=== PATIENT | female | born 1955 | race Caucasian/White ===

== ENCOUNTER 2019-05-06 12:26 | Emergency (ER) | payer BC, OTHER ==
[2019-05-06 12:48] VITALS: BP 110/64
--- NOTE | 2019-05-06 12:49 | EDM.PDOC ---
ED HPI GENERAL MEDICAL PROBLEM - General Stated Complaint: FELL DOWN THE STAIRS Time Seen by Provider: 05/06/19 12:35 Source of Information: Reports: Patient History Limitations: Reports: No Limitations - History of Present Illness INITIAL COMMENTS - FREE TEXT/NARRATIVE: This 64 yo female patient reports to the ED with pain and bruising to her right buttocks and hip. The patient reports she fell down approximately 4 stairs due to tripping on a towel and landed on her buttocks. The patient has several contusions and abrasions on her right ankle and left forearm with no current bleeding. The patient denies any loss of consciousness before, during or after the fall. Onset: Today Duration: Minutes:, Constant Location: Reports: Lower Extremity, Right Quality: Reports: Ache, Dull Severity: Moderate Improves with: Reports: None Worsens with: Reports: None Context: Reports: Other Associated Symptoms: Reports: No Other Symptoms - Related Data Allergies Allergy/AdvReac Type Severity Reaction Status Date / Time azathioprine [From Imuran] Allergy developed Verified 05/06/19 12:34 Pancreatitis clindamycin Allergy Abdominal Verified 05/06/19 12:33 Pain infliximab [From Remicade] Allergy blood clots Verified 05/06/19 12:34 meperidine [From Demerol] Allergy Hallucinati Verified 05/06/19 12:33 ons Home Meds: Home Meds Adalimumab [Humira] 20 mg IM Q14D 05/06/19 [History] Rivaroxaban [Xarelto] 20 mg PO DAILY 05/06/19 [History] Past Medical History HEENT History: Reports: None Cardiovascular History: Reports: None Respiratory History: Reports: None Other Gastrointestinal History: Crohns Genitourinary History: Reports: None 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: Musculoskeletal History: Reports: Arthritis Neurological History: Reports: None Psychiatric History: Reports: None Endocrine/Metabolic History: Reports: None Hematologic History: Reports: None Immunologic History: Reports: None Oncologic (Cancer) History: Reports: None Dermatologic History: Reports: Other (See Below) Other Dermatologic History: recurring perianal abscess - Infectious Disease History Infectious Disease History: Reports: Chicken Pox, Measles, Shingles - Past Surgical History Female Surgical History: Reports: Breast Biopsy, Hysterectomy Oncologic Surgical History: Reports: Biopsy of Breast Social & Family History - Family History HEENT: Reports: Macular Degeneration GI: Reports: Diverticulosis Psychiatric: Reports: Depression Endocrine/Metabolic: Reports: Diabetes, type II Oncologic: Reports: Bladder - Caffeine Use Caffeine Use: Reports: Coffee Review of Systems - Review of Systems Review Of Systems: ROS reveals no pertinent complaints other than HPI. ED EXAM, GENERAL - Physical Exam Exam: See Below Exam Limited By: No Limitations General Appearance: Alert, WD/WN, Mild Distress Eye Exam: Bilateral Eye: EOMI, Normal Inspection, PERRL Ears: Normal External Exam, Normal Canal, Hearing Grossly Normal, Normal TMs Nose: Normal Inspection, No Blood Throat/Mouth: Normal Inspection, Normal Lips, Normal Teeth Head: Atraumatic, Normocephalic Neck: Full Range of Motion Respiratory/Chest: No Respiratory Distress, Lungs Clear Cardiovascular: Normal Peripheral Pulses, Regular Rate, Rhythm, No Edema, No Gallop, No JVD, No Murmur, No Rub GI/Abdominal: Normal Bowel Sounds, Soft, Non-Tender, No Organomegaly, No Distention, No Abnormal Bruit, No Mass (Female) Exam: Deferred Rectal (Female) Exam: Deferred Back Exam: Normal Inspection, Full Range of Motion, NT Extremities: Leg Pain (right buttocks has an area of contusion) Neurological: Alert, Oriented, CN II-XII Intact Psychiatric: Normal Affect, Normal Mood Skin Exam: Warm, Dry, Intact, Normal Color, No Rash Lymphatic: No Adenopathy Course - Vital Signs Last Recorded V/S: Last Vital Signs Temp 36.3 C 05/06/19 12:29 Pulse 88 05/06/19 12:29 Resp 18 05/06/19 12:29 BP 110/64 05/06/19 12:29 Pulse Ox 98 05/06/19 12:29 Departure - Departure Time of Disposition: 13:15 Disposition: Home, Self-Care 01 Condition: Fair Clinical Impression: Contusion of right hip Qualifiers: Encounter type: initial encounter Qualified Code(s): S70.01XA - Contusion of right hip, initial encounter - Discharge Information *PRESCRIPTION DRUG MONITORING PROGRAM REVIEWED*: Not Applicable *COPY OF PRESCRIPTION DRUG MONITORING REPORT IN PATIENT ALBERTO: Not Applicable Instructions: Contusion, [id number] Forms: ED Department Discharge Care Plan Goals: The patient was advised of the examination and x-ray results during the visit. The patient was encouraged to rest, ice and elevate areas of injury (if possible ). The patient should continue with her medications as prescribed. If the patient has any additional symptoms or concerns, the patient should either return to the emergency department or visit her primary care facility.
--- NOTE | 2019-05-06 13:00 | CR ---
Clinical history: 64-year-old female injured fall down stairs (right "cheek" hematoma). Interpretation (AP pelvis/hips and AP/frog lateral right hip and hemipelvis) Interpretation: Chronic lower lumbar disc disease with associated reactive arthritic changes of the spine. Symmetric spacing normal-appearing SI and hip joints (subtle asymmetric arthritic changes of the right hip). *No sign of acute pelvic or either hip fracture/dislocation. No foreign bodies. CONCLUSION: No fractures. Chronic lower lumbar disc disease.
== END 2019-05-06 13:25 | disposition home or self-care (01) ==
LOC: DL.ED 12:26
DX: S70.01XA Contusion of right hip, initial encounter (principal); S30.0XXA Contusion of lower back and pelvis, initial encounter; M19.90 Unspecified osteoarthritis, unspecified site; Z88.8 Allergy status to other drugs, medicaments and biological substances; Z88.1 Allergy status to other antibiotic agents; Z90.710 Acquired absence of both cervix and uterus; W10.9XXA Fall (on) (from) unspecified stairs and steps, initial encounter
CPT/HCPCS: 99284-25

== ENCOUNTER 2019-07-17 16:20 | Emergency (ER) | payer OTHER ==
[2019-07-17] MEDS ORDERED: Enoxaparin 80 MG/0.8 ML Syringe SUBCUT ONE (18:20)
[2019-07-17] MEDS ORDERED: Rivaroxaban 10 MG Tab PO ONE (18:20)
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
[2019-07-17 18:57] VITALS: BP 109/66; PULSE 65
== END 2019-07-17 18:45 | disposition home or self-care (01) ==
LOC: DL.ED 16:20
DX: I82.502 Chronic embolism and thrombosis of unspecified deep veins of left lower extremity (principal); E11.9 Type 2 diabetes mellitus without complications; M19.90 Unspecified osteoarthritis, unspecified site; Z88.1 Allergy status to other antibiotic agents; Z88.8 Allergy status to other drugs, medicaments and biological substances; Z88.5 Allergy status to narcotic agent; Z79.899 Other long term (current) drug therapy
CPT/HCPCS: 96372; 99282; A9270; J1650